=== PATIENT | male | born 1960 | race Caucasian/White ===

== ENCOUNTER 2018-08-14 15:20 | Emergency (ER) | payer BC ==
[2018-08-14] MEDS ORDERED: Sodium Chloride 0.9% 2.5 ML Syringe FLUSH PRN (15:25)
[2018-08-14] MEDS ORDERED: Sodium Chloride 0.9% 10 ML Syringe FLUSH PRN (15:25)
[2018-08-14] MEDS ORDERED: Nitroglycerin 0.4 MG Tab.SL ONE (15:29)
[2018-08-14] MEDS: Nitroglycerin 0.4 MG Tab.SL SL PRN ×2 (15:34→15:39)
--- NOTE | 2018-08-14 15:46 | EDM.PDOC ---
ED HPI GENERAL MEDICAL PROBLEM - General Chief Complaint: Chest Pain Stated Complaint: CHEST PAIN \\ Time Seen by Provider: 08/14/18 15:23 Source of Information: Reports: Patient History Limitations: Reports: No Limitations - History of Present Illness INITIAL COMMENTS - FREE TEXT/NARRATIVE: History of present illness: []Patient started having 5/10 left-sided, nonradiating chest pain since 8:00 this morning with a "weakness" in his left arm. He has been having similar episodes throughout the day lasting approximately 15 minutes each time. He has been mildly short of breath but states he's had a cold all winter long. He denies any fevers, sweats, dizziness or syncope. Patient took ending enteric coated aspirin today. Review of systems: As per history of present illness and below otherwise all systems reviewed and negative. Past medical history: As per history of present illness and as reviewed below otherwise noncontributory. Surgical history: As per history of present illness and as reviewed below otherwise noncontributory. Social history: No reported history of drug or alcohol abuse. Family history: As per history of present illness and as reviewed below otherwise noncontributory. Physical exam: General: Well developed, well nourished in NAD HEENT: Atraumatic, normocephalic, pupils reactive, negative for conjunctival pallor or scleral icterus, mucous membranes moist, throat clear, neck supple, nontender, trachea midline. Lungs: Clear to auscultation, breath sounds equal bilaterally, chest nontender. Heart: S1S2, regular, negative for clicks, rubs, or JVD. Abdomen: NABS, Soft, nondistended, nontender. Negative for masses or hepatosplenomegaly. Negative for costovertebral tenderness. Pelvis: Stable nontender. Genitourinary: Deferred. Rectal: Deferred. Extremities: Atraumatic, negative for cords or calf pain. Neurovascular unremarkable. Neuro: Awake, alert, oriented. Cranial nerves II through XII unremarkable. Cerebellum unremarkable. Motor and sensory unremarkable throughout. Exam nonfocal. Skin:warm and dry Diagnostics: EKG, CBC, chemistry, troponin 2, chest x-ray Therapeutics: Nitroglycerin 2 without relief patient refused any other meds ED Course: stable Impression: Chest pain Prescriptions: None Plan: Follow-up with primary care Definitive disposition and diagnosis as appropriate pending reevaluation and review of above. chest Pain Score (Numeric/FACES): 5 - Related Data Allergies Allergy/AdvReac Type Severity Reaction Status Date / Time No Known Allergies Allergy Verified 08/14/18 15:32 Home Meds: Home Meds . [No Known Home Meds] 08/14/18 [History] Past Medical History - Past Health History Medical/Surgical History: Denies Medical/Surgical History HEENT History: Reports: Impaired Vision - Infectious Disease History Infectious Disease History: Reports: Mononucleosis Social & Family History - Family History Family Medical History: Noncontributory - Tobacco Use Smoking Status *Q: Never Smoker - Recreational Drug Use Recreational Drug Use: No ED ROS GENERAL - Review of Systems Review Of Systems: ROS reveals no pertinent complaints other than HPI. ED EXAM, GENERAL - Physical Exam Exam: See Below Course - Vital Signs Last Recorded V/S: Last Vital Signs Temp 97.9 F 08/14/18 15:32 Pulse 86 08/14/18 18:45 Resp 16 08/14/18 18:45 BP 119/82 08/14/18 18:45 Pulse Ox 95 08/14/18 18:45 - Orders/Labs/Meds Orders: Active Orders 24 hr Category Date Time Status Cardiac Monitoring [RC] . DIRECTED Care 08/14/18 15:25 Active EKG Documentation Completion [RC] STAT Care 08/14/18 15:25 Active TROPONIN I [CHEM] Stat Lab 08/14/18 18:37 Received Nitroglycerin [Nitrostat] Med 08/14/18 15:32 Active 0.4 mg SL Q5M PRN Sodium Chloride 0.9% [Saline Flush] Med 08/14/18 15:25 Active 10 ml FLUSH ASDIRECTED PRN Sodium Chloride 0.9% [Saline Flush] Med 08/14/18 15:25 Active 2.5 ml FLUSH ASDIRECTED PRN Saline Lock Insert [OM.PC] Stat Oth 08/14/18 15:25 Ordered Medication Orders Nitroglycerin (Nitrostat) 0.4 mg SL Q5M PRN PRN Reason: Chest Pain Last Admin: 08/14/18 15:39 Dose: 0.4 mg Admin: 08/14/18 15:34 Dose: 0.4 mg Sodium Chloride (Saline Flush) 10 ml FLUSH ASDIRECTED PRN PRN Reason: Keep Vein Open Last Admin: 08/14/18 15:34 Dose: 10 ml Sodium Chloride (Saline Flush) 2.5 ml FLUSH ASDIRECTED PRN PRN Reason: Keep Vein Open Last Admin: 08/14/18 15:34 Dose: 2.5 ml Labs: Laboratory Tests 08/14/18 08/14/18 Range/Units 15:28 15:28 WBC 7.42 (4.0-11.0) K/uL RBC 5.95 H (4.50-5.90) M/uL Hgb 18.3 H (13.0-17.0) g/dL Hct 52.3 H (38.0-50.0) % MCV 87.9 (80.0-98.0) fL MCH 30.8 (27.0-32.0) pg MCHC 35.0 (31.0-37.0) g/dL RDW Std Deviation 43.8 (28.0-62.0) fl RDW Coeff of Natasha 14 (11.0-15.0) % Plt Count 172 (150-400) K/uL MPV 10.70 (7.40-12.00) fL Neut % (Auto) 59.9 (48.0-80.0) % Lymph % (Auto) 24.9 (16.0-40.0) % [place] % (Auto) 9.0 (0.0-15.0) % Eos % (Auto) 5.5 (0.0-7.0) % Baso % (Auto) 0.7 (0.0-1.5) % Neut # (Auto) 4.4 (1.4-5.7) K/uL Lymph # (Auto) 1.9 (0.6-2.4) K/uL [place] # (Auto) 0.7 (0.0-0.8) K/uL Eos # (Auto) 0.4 (0.0-0.7) K/uL Baso # (Auto) 0.1 (0.0-0.1) K/uL Nucleated RBC % 0.0 /100WBC Nucleated RBCs # 0 K/uL Sodium 139 (136-148) mmol/L Potassium 4.0 (3.5-5.1) mmol/L Chloride 105 (98-107) mmol/L Carbon Dioxide 24.1 (21.0-32.0) mmol/L BUN 18 (7.0-18.0) mg/dL Creatinine 1.0 (0.8-1.3) mg/dL Est Cr Clr Drug Dosing 91.33 mL/min Estimated GFR (MDRD) > 60.0 ml/min Glucose 113 H (74-106) mg/dL Calcium 8.7 (8.5-10.1) mg/dL Total Bilirubin 0.5 (0.2-1.0) mg/dL AST 14 L (15-37) IU/L ALT 22 (14-63) IU/L Alkaline Phosphatase 48 (46-116) U/L Troponin I < 0.050 (0.000-0.056) ng/mL Total Protein 7.1 (6.4-8.2) g/dL Albumin 3.6 (3.4-5.0) g/dL Globulin 3.5 (2.6-4.0) g/dL Albumin/Globulin Ratio 1.0 (0.9-1.6) Meds: Medications Generic Name Dose Route Start Last Admin Trade Name Freq PRN Reason Stop Dose Admin Nitroglycerin 0.4 mg 08/14/18 15:32 08/14/18 15:39 Nitrostat SL 0.4 mg Q5M PRN Administration Chest Pain Sodium Chloride 10 ml 08/14/18 15:25 08/14/18 15:34 Saline Flush FLUSH 10 ml ASDIRECTED PRN Administration Keep Vein Open Sodium Chloride 2.5 ml 08/14/18 15:25 08/14/18 15:34 Saline Flush FLUSH 2.5 ml ASDIRECTED PRN Administration Keep Vein Open Discontinued Medications Generic Name Dose Route Start Last Admin Trade Name Freq PRN Reason Stop Dose Admin Nitroglycerin Confirm 08/14/18 15:29 08/14/18 15:35 Nitrostat Administered 08/14/18 15:30 Not Given Dose 0.4 mg .ROUTE .STK-MED ONE Departure - Departure Time of Disposition: 19:16 Disposition: Against Medical Advice 07 Condition: Good Clinical Impression: Chest pain Qualifiers: Chest pain type: unspecified Qualified Code(s): R07.9 - Chest pain, unspecified Instructions: Nonspecific Chest Pain, [id number] Referrals: PCP,Unknown [Primary Care Provider] - Forms: ED Department Discharge Additional Instructions: The following information is given to patients seen in the emergency department who are being discharged to home. This information is to outline your options for follow-up care. We provide all patients seen in our emergency department with a follow-up referral. The need for follow-up, as well as the timing and circumstances, are variable depending upon the specifics of your emergency department visit. If you don't have a primary care physician on staff, we will provide you with a referral. We always advise you to contact your personal physician following an emergency department visit to inform them of the circumstance of the visit and for follow-up with them and/or the need for any referrals to a consulting specialist. The emergency department will also refer you to a specialist when appropriate. This referral assures that you have the opportunity for follow-up care with a specialist. All of these measure are taken in an effort to provide you with optimal care, which includes your follow-up. Under all circumstances we always encourage you to contact your private physician who remains a resource for coordinating your care. When calling for follow-up care, please make the office aware that this follow-up is from your recent emergency room visit. If for any reason you are refused follow-up, please contact the [facility] Emergency Department at and asked to speak to the emergency department charge nurse. Follow-up with primary care in 2 days as scheduled in terms worsen or change. [facility] [address] [place] [id number] - My Orders Last 24 Hours: My Active Orders 08/14/18 15:25 Cardiac Monitoring [RC] . DIRECTED EKG Documentation Completion [RC] STAT Sodium Chloride 0.9% [Saline Flush] 10 ml FLUSH ASDIRECTED PRN Sodium Chloride 0.9% [Saline Flush] 2.5 ml FLUSH ASDIRECTED PRN Saline Lock Insert [OM.PC] Stat 08/14/18 15:32 Nitroglycerin [Nitrostat] 0.4 mg SL Q5M PRN 08/14/18 18:37 TROPONIN I [CHEM] Stat - Assessment/Plan Last 24 Hours: My Active Orders 08/14/18 15:25 Cardiac Monitoring [RC] . DIRECTED EKG Documentation Completion [RC] STAT Sodium Chloride 0.9% [Saline Flush] 10 ml FLUSH ASDIRECTED PRN Sodium Chloride 0.9% [Saline Flush] 2.5 ml FLUSH ASDIRECTED PRN Saline Lock Insert [OM.PC] Stat 08/14/18 15:32 Nitroglycerin [Nitrostat] 0.4 mg SL Q5M PRN 08/14/18 18:37 TROPONIN I [CHEM] Stat
[2018-08-14 16:13] LABS: CHLORIDE,CL 105 mmol/L (98-107); SODIUM,NA 139 mmol/L (136-148)
--- NOTE | 2018-08-14 16:14 | CR ---
EXAMINATION: Portable chest radiograph. HISTORY: Shortness of breath. FINDINGS: The trachea is midline. The cardiomediastinal silhouette is within normal limits. No pulmonary infiltrates, effusions or pneumothorax. Mild biapical scarring. Osseous structures appear unremarkable. IMPRESSION: No acute cardiopulmonary process.
== END 2018-08-14 19:45 | disposition left against medical advice (07) ==
LOC: MW.ED 15:20
DX: R07.9 Chest pain, unspecified (principal)
CPT/HCPCS: 36415; 71045; 80053; 84484; 85025; 93005; 99285; A9270; 99284

== ENCOUNTER 2018-08-14 21:54 | Observation (INO) | payer BC ==
[2018-08-14] MEDS ORDERED: Sodium Chloride 0.9% 2.5 ML Syringe FLUSH PRN (22:04)
[2018-08-14] MEDS ORDERED: Sodium Chloride 0.9% 10 ML Syringe FLUSH PRN (22:04)
[2018-08-14] MEDS ORDERED: Ondansetron 4 MG/2 ML SDV IVPUSH ONE (22:04)
[2018-08-14] MEDS ORDERED: Ketorolac 30 MG/ML SDV IVPUSH ONE (22:04)
[2018-08-14] MEDS ORDERED: Sodium Chloride 0.9% 1,000 ML IV ONE (22:04)
--- NOTE | 2018-08-14 22:08 | EDM.PDOC ---
ED HPI GENERAL MEDICAL PROBLEM - General Stated Complaint: CHEST PAIN Time Seen by Provider: 08/14/18 22:00 - History of Present Illness INITIAL COMMENTS - FREE TEXT/NARRATIVE: HISTORY AND PHYSICAL: History of present illness: The patient is a 58-year-old male who was seen here earlier this evening with left-sided chest pain that was episodic through the day starting at 8 AM. The patient did not respond to nitroglycerin here and it or he taken an enteric- coated aspirin earlier today when Dr. Cline saw this patient and he had a negative workup including 2 negative troponins and a negative chest x-ray. The patient refused any other medications after the 2 nitroglycerin and said he got a headache from them. He refused admission although admission was advised due to his age and presentation. He says to me he has no pre-existing medical problems and when he left here he felt fine but when he got home he started having the left-sided chest pain again which he rated as a 5/10 he then became nauseated and vomited a large amount of fluid and his headache got worse. The patient said that when the pain started he tried to take some Advil but he vomited that medication up. Currently he has no chest pain and is only slightly nauseated and has no abdominal pain. Before the episode of vomiting he did not have any abdominal complaints. He is not dizzy or lightheaded and he has no neck or back pain. I asked the patient if he was willing to stay for admission now and he is agreeable. The patient denies any GI history or food intolerance Review of systems: As per history of present illness and below otherwise all systems reviewed and negative. Past medical history: As per history of present illness and as reviewed below otherwise noncontributory. Surgical history: As per history of present illness and as reviewed below otherwise noncontributory. Social history: No reported history of drug or alcohol abuse. Family history: As per history of present illness and as reviewed below otherwise noncontributory. Physical exam: General: Well-developed well-nourished thin man who is nontoxic and vital signs are noted by me. HEENT: Atraumatic, normocephalic, pupils reactive, negative for conjunctival pallor or scleral icterus, mucous membranes moist, throat clear, neck supple, nontender, trachea midline. Lungs: Clear to auscultation, breath sounds equal bilaterally, chest nontender. Heart: S1S2, regular rate and rhythm no overt murmurs Abdomen: Soft, nondistended, nontender. Negative for masses or hepatosplenomegaly. NABS Pelvis: Stable nontender. Genitourinary: Deferred. Rectal: Deferred. Extremities: Atraumatic, negative for cords or calf pain. Neurovascular unremarkable. No pedal edema Neuro: Awake, alert, oriented. Cranial nerves II through XII unremarkable. Cerebellum unremarkable. Motor and sensory unremarkable throughout. Exam nonfocal. Diagnostics: EKG CBC CMP troponin H pylori amylase and lipase Chest x-ray was performed earlier and will not be repeated and all labs from earlier have been reviewed by me Therapeutics: IV O2 monitor IV fluids Zofran Toradol Patient had an aspirin earlier today He currently denies any chest pain so I will not give him any nitroglycerin 2323: I discussed with the patient and family at bedside all testing results and the patient is agreeable for observation admission. I did discuss this case with Dr. Lo who accepts him. Impression: Episodic chest pain Definitive disposition and diagnosis as appropriate pending reevaluation and review of above. Chest Pain Score (Numeric/FACES): 5 - Related Data Allergies Allergy/AdvReac Type Severity Reaction Status Date / Time No Known Allergies Allergy Verified 08/14/18 22:08 Home Meds: Home Meds . [No Known Home Meds] 08/14/18 [History] Past Medical History - Past Health History Medical/Surgical History: Denies Medical/Surgical History HEENT History: Reports: Impaired Vision - Infectious Disease History Infectious Disease History: Reports: Mononucleosis Social & Family History - Family History Family Medical History: Noncontributory ED ROS GENERAL - Review of Systems Review Of Systems: ROS reveals no pertinent complaints other than HPI. ED EXAM, GENERAL - Physical Exam Exam: See Below (See dictation) Course - Vital Signs Last Recorded V/S: Last Vital Signs Temp 36.6 C 08/14/18 22:06 Pulse 70 08/14/18 22:06 Resp BP 139/92 H 08/14/18 22:06 Pulse Ox 96 08/14/18 22:06 - Orders/Labs/Meds Orders: Active Orders 24 hr Category Date Time Status Patient Status [ADT] Stat ADT 08/14/18 23:24 Ordered Cardiac Monitoring [RC] . DIRECTED Care 08/14/18 22:03 Active EKG Documentation Completion [RC] STAT Care 08/14/18 22:03 Active Oxygen Therapy, ED [RC] ASDIRECTED Care 08/14/18 22:03 Active Pulse Oximetry [RC] ASDIRECTED Care 08/14/18 22:03 Active Sodium Chloride 0.9% [Saline Flush] Med 08/14/18 22:04 Active 10 ml FLUSH ASDIRECTED PRN Sodium Chloride 0.9% [Saline Flush] Med 08/14/18 22:04 Active 2.5 ml FLUSH ASDIRECTED PRN Saline Lock Insert [OM.PC] Stat Oth 08/14/18 22:03 Ordered Medication Orders Sodium Chloride (Saline Flush) 10 ml FLUSH ASDIRECTED PRN PRN Reason: Keep Vein Open Sodium Chloride (Saline Flush) 2.5 ml FLUSH ASDIRECTED PRN PRN Reason: Keep Vein Open Labs: Laboratory Tests 08/14/18 08/14/18 08/14/18 Range/Units 22:08 22:08 22:08 WBC 9.42 (4.0-11.0) K/uL RBC 5.72 (4.50-5.90) M/uL Hgb 17.9 H (13.0-17.0) g/dL Hct 50.6 H (38.0-50.0) % MCV 88.5 (80.0-98.0) fL MCH 31.3 (27.0-32.0) pg MCHC 35.4 (31.0-37.0) g/dL RDW Std Deviation 44.1 (28.0-62.0) fl RDW Coeff of Natasha 14 (11.0-15.0) % Plt Count 165 (150-400) K/uL MPV 10.70 (7.40-12.00) fL Neut % (Auto) 68.4 (48.0-80.0) % Lymph % (Auto) 21.7 (16.0-40.0) % [place] % (Auto) 6.2 (0.0-15.0) % Eos % (Auto) 3.5 (0.0-7.0) % Baso % (Auto) 0.2 (0.0-1.5) % Neut # (Auto) 6.5 H (1.4-5.7) K/uL Lymph # (Auto) 2.0 (0.6-2.4) K/uL [place] # (Auto) 0.6 (0.0-0.8) K/uL Eos # (Auto) 0.3 (0.0-0.7) K/uL Baso # (Auto) 0.0 (0.0-0.1) K/uL Nucleated RBC % 0.0 /100WBC Nucleated RBCs # 0 K/uL Sodium 141 (136-148) mmol/L Potassium 4.4 (3.5-5.1) mmol/L Chloride 105 (98-107) mmol/L Carbon Dioxide 27.9 (21.0-32.0) mmol/L BUN 20 H (7.0-18.0) mg/dL Creatinine 1.1 (0.8-1.3) mg/dL Est Cr Clr Drug Dosing 83.03 mL/min Estimated GFR (MDRD) > 60.0 ml/min Glucose 110 H (74-106) mg/dL Calcium 8.9 (8.5-10.1) mg/dL Total Bilirubin 0.5 (0.2-1.0) mg/dL AST 15 (15-37) IU/L ALT 23 (14-63) IU/L Alkaline Phosphatase 43 L (46-116) U/L Troponin I < 0.050 (0.000-0.056) ng/mL Total Protein 6.8 (6.4-8.2) g/dL Albumin 3.5 (3.4-5.0) g/dL Globulin 3.3 (2.6-4.0) g/dL Albumin/Globulin Ratio 1.1 (0.9-1.6) Amylase 74 (25-115) U/L Lipase 222 (73-393) U/L H. pylori IgG Antibody NEGATIVE (NEG) Meds: Medications Generic Name Dose Route Start Last Admin Trade Name Freq PRN Reason Stop Dose Admin Sodium Chloride 10 ml 08/14/18 22:04 Saline Flush FLUSH ASDIRECTED PRN Keep Vein Open Sodium Chloride 2.5 ml 08/14/18 22:04 Saline Flush FLUSH ASDIRECTED PRN Keep Vein Open Discontinued Medications Generic Name Dose Route Start Last Admin Trade Name Freq PRN Reason Stop Dose Admin Sodium Chloride 1,000 mls @ 999 mls/hr 08/14/18 22:04 08/14/18 22:15 Normal Saline IV 08/14/18 23:04 999 mls/hr STAT ONE Administration Ketorolac Tromethamine 30 mg 08/14/18 22:04 08/14/18 22:16 Toradol IVPUSH 08/14/18 22:05 30 mg ONETIME ONE Administration Ondansetron HCl 4 mg 08/14/18 22:04 08/14/18 22:15 Zofran IVPUSH 08/14/18 22:05 4 mg ONETIME ONE Administration Departure - Departure Time of Disposition: 23:25 Disposition: Refer to Observation Condition: Good Clinical Impression: Chest pain Qualifiers: Chest pain type: unspecified Qualified Code(s): R07.9 - Chest pain, unspecified - Discharge Information Referrals: PCP,None [Primary Care Provider] - - My Orders Last 24 Hours: My Active Orders 08/14/18 22:03 Cardiac Monitoring [RC] . DIRECTED EKG Documentation Completion [RC] STAT Oxygen Therapy, ED [RC] ASDIRECTED Pulse Oximetry [RC] ASDIRECTED Saline Lock Insert [OM.PC] Stat 08/14/18 22:04 Sodium Chloride 0.9% [Saline Flush] 10 ml FLUSH ASDIRECTED PRN Sodium Chloride 0.9% [Saline Flush] 2.5 ml FLUSH ASDIRECTED PRN 08/14/18 23:24 Patient Status [ADT] Stat - Assessment/Plan Last 24 Hours: My Active Orders 08/14/18 22:03 Cardiac Monitoring [RC] . DIRECTED EKG Documentation Completion [RC] STAT Oxygen Therapy, ED [RC] ASDIRECTED Pulse Oximetry [RC] ASDIRECTED Saline Lock Insert [OM.PC] Stat 08/14/18 22:04 Sodium Chloride 0.9% [Saline Flush] 10 ml FLUSH ASDIRECTED PRN Sodium Chloride 0.9% [Saline Flush] 2.5 ml FLUSH ASDIRECTED PRN 08/14/18 23:24 Patient Status [ADT] Stat
[2018-08-14 22:48] LABS: CHLORIDE,CL 105 mmol/L (98-107); SODIUM,NA 141 mmol/L (136-148)
[2018-08-15] MEDS ORDERED: oxyCODONE 5 MG Tab PO PRN (00:30)
[2018-08-15] MEDS ORDERED: Acetaminophen 325 MG Tab PO PRN (00:30)
[2018-08-15] MEDS ORDERED: Sodium Chloride 0.9% 10 ML Syringe FLUSH PRN (00:31)
[2018-08-15] MEDS ORDERED: Ondansetron 4 MG/2 ML SDV IVPUSH PRN (00:33)
--- NOTE | 2018-08-15 06:49 | PCM.HP ---
H&P History of Present Illness - General Date of Service: 08/15/18 Admit Problem/Dx: Admission Diagnosis/Problem Admission Diagnosis/Problem Atypical chest pain Source of Information: Patient History Limitations: Reports: No Limitations - History of Present Illness Initial Comments - Free Text/Narative: The patient is an otherwise healthy 58-year-old gentleman who had presented to the emergency department yesterday morning with a complaint of nonspecific chest pain. The patient had been advised for hospitalization admission however he declined at that time. The patient had been doing well after discharge from the emergency department when he presented a second time with complaint of left- sided chest pain primarily in his shoulder and underneath his left arm which it started suddenly and had no specific aggravating or relieving factors. The symptoms did not radiate. He had been given previously nitroglycerin in the emergency department and he had developed a headache from this. The patient had a headache at the time of the chest pain and had some vomiting associated with the pain. The patient is healthy and he does not take any medications on a regular basis. The patient has denied any alcohol or tobacco use. The patient also had during hospitalization and emergency room visit 3 essentially undetectable troponins. During the short course of the patient's hospitalization he had been pain free. Onset of Symptoms: Reports: Sudden Duration of Symptoms: Reports: Hour(s):, Getting Worse Location: Reports: Chest Quality: Reports: Dull, Other (Cramping) Severity: Moderate Improves with: Reports: None Worsens with: Reports: Movement Associated Symptoms: Reports: No Other Symptoms Chest Pain Score (Numeric/FACES): 0 Headache Pain Score (Numeric/FACES): 3 - Related Data Allergies/Adverse Reactions: Allergies Allergy/AdvReac Type Severity Reaction Status Date / Time No Known Allergies Allergy Verified 08/14/18 22:08 Home Medications: Home Meds . [No Known Home Meds] 08/14/18 [History] Past Medical History - Past Health History Medical/Surgical History: Denies Medical/Surgical History HEENT History: Reports: Impaired Vision Cardiovascular History: Reports: None Respiratory History: Reports: None Gastrointestinal History: Reports: GERD Genitourinary History: Reports: None Musculoskeletal History: Reports: None Neurological History: Reports: None Psychiatric History: Reports: None Endocrine/Metabolic History: Reports: None Hematologic History: Reports: None Immunologic History: Reports: None Oncologic (Cancer) History: Reports: None Dermatologic History: Reports: None - Infectious Disease History Infectious Disease History: Reports: Mononucleosis - Past Surgical History Musculoskeletal Surgical History: Reports: Shoulder Surgery Social & Family History - Family History Family Medical History: Noncontributory Cardiac: Reports: CAD - Tobacco Use Smoking Status *Q: Never Smoker Second Hand Smoke Exposure: No - Caffeine Use Caffeine Use: Reports: Coffee, Energy Drinks, Soda, Tea - Alcohol Use Days Per Week of Alcohol Use: 1 Number of Drinks Per Day: 3 Total Drinks Per Week: 3 Date of Last Drink: 08/08/18 - Recreational Drug Use Recreational Drug Use: No H&P Review of Systems - Review of Systems: Review Of Systems: See Below General: Reports: No Symptoms HEENT: Reports: No Symptoms Pulmonary: Reports: No Symptoms Cardiovascular: Reports: Chest Pain Gastrointestinal: Reports: No Symptoms Genitourinary: Reports: No Symptoms Musculoskeletal: Reports: No Symptoms Skin: Reports: No Symptoms Psychiatric: Reports: No Symptoms Neurological: Reports: No Symptoms Hematologic/Lymphatic: Reports: No Symptoms Immunologic: Reports: No Symptoms Exam - Exam Exam: See Below - Vital Signs Vital Signs: Last Vital Signs Temp 36.5 C 08/15/18 04:00 Pulse 68 08/15/18 04:00 Resp 16 08/15/18 04:00 BP 107/66 08/15/18 04:00 Pulse Ox 95 08/15/18 04:00 Weight: 85.366 kg - Exam Quality Assessment: No: Supplemental Oxygen General: Alert, Oriented, Cooperative HEENT: Conjunctiva Clear, EACs Clear, EOMI, Hearing Intact, Mucosa Moist & [place] , Nares Patent, PERRLA Neck: Supple, Trachea Midline, 2 Lungs: Clear to Auscultation, Normal Respiratory Effort Cardiovascular: Regular Rate, Regular Rhythm GI/Abdominal Exam: Normal Bowel Sounds, Soft, Non-Tender, No Distention (Male) Exam: Deferred Rectal (Males) Exam: Deferred Back Exam: Normal Inspection, Full Range of Motion, NT Extremities: Normal Inspection, Normal Range of Motion, No Pedal Edema Skin: Warm, Dry, Intact Neurological: Cranial Nerves Intact, Normal Gait Neuro Extensive - Mental Status: Alert, Oriented x3 Neuro Extensive - Motor, Sensory, Reflexes: CN II-XII Intact Psychiatric: Alert, Normal Affect, Normal Mood - Patient Data Lab Results Last 24 hrs: Laboratory Results - last 24 hr 08/14/18 08/14/18 08/14/18 Range/Units 22:08 22:08 22:08 WBC 9.42 (4.0-11.0) K/uL RBC 5.72 (4.50-5.90) M/uL Hgb 17.9 H (13.0-17.0) g/dL Hct 50.6 H (38.0-50.0) % MCV 88.5 (80.0-98.0) fL MCH 31.3 (27.0-32.0) pg MCHC 35.4 (31.0-37.0) g/dL RDW Std Deviation 44.1 (28.0-62.0) fl RDW Coeff of Natasha 14 (11.0-15.0) % Plt Count 165 (150-400) K/uL MPV 10.70 (7.40-12.00) fL Neut % (Auto) 68.4 (48.0-80.0) % Lymph % (Auto) 21.7 (16.0-40.0) % [place]oke % (Auto) 6.2 (0.0-15.0) % Eos % (Auto) 3.5 (0.0-7.0) % Baso % (Auto) 0.2 (0.0-1.5) % Neut # (Auto) 6.5 H (1.4-5.7) K/uL Lymph # (Auto) 2.0 (0.6-2.4) K/uL [place]oke # (Auto) 0.6 (0.0-0.8) K/uL Eos # (Auto) 0.3 (0.0-0.7) K/uL Baso # (Auto) 0.0 (0.0-0.1) K/uL Nucleated RBC % 0.0 /100WBC Nucleated RBCs # 0 K/uL Sodium 141 (136-148) mmol/L Potassium 4.4 (3.5-5.1) mmol/L Chloride 105 (98-107) mmol/L Carbon Dioxide 27.9 (21.0-32.0) mmol/L BUN 20 H (7.0-18.0) mg/dL Creatinine 1.1 (0.8-1.3) mg/dL Est Cr Clr Drug Dosing 83.03 mL/min Estimated GFR (MDRD) > 60.0 ml/min Glucose 110 H (74-106) mg/dL Calcium 8.9 (8.5-10.1) mg/dL Total Bilirubin 0.5 (0.2-1.0) mg/dL AST 15 (15-37) IU/L ALT 23 (14-63) IU/L Alkaline Phosphatase 43 L (46-116) U/L Troponin I < 0.050 (0.000-0.056) ng/mL Total Protein 6.8 (6.4-8.2) g/dL Albumin 3.5 (3.4-5.0) g/dL Globulin 3.3 (2.6-4.0) g/dL Albumin/Globulin Ratio 1.1 (0.9-1.6) Amylase 74 (25-115) U/L Lipase 222 (73-393) U/L H. pylori IgG Antibody NEGATIVE (NEG) Result Diagrams: 08/14/18 22:08 08/14/18 22:08 - Problem List (1) Left-sided chest wall pain SNOMED Code(s): 695688185 ICD Code: R07.89 - OTHER CHEST PAIN Status: Resolved Priority: High Problem List Initiated/Reviewed/Updated: Yes Orders Last 24hrs: Active Orders 24 hr Category Date Time Status Patient Status [ADT] Stat ADT 08/14/18 23:24 Active EKG 12 Lead [EKG Documentation Completion] [RC] AM Care 08/15/18 06:00 Active EKG Documentation Completion [RC] STAT Care 08/14/18 22:03 Active Oxygen Therapy, ED [RC] ASDIRECTED Care 08/14/18 22:03 Active Pulse Oximetry [RC] ASDIRECTED Care 08/14/18 22:03 Active Telemetry Monitoring [Cardiac Monitoring] [RC] Q8H Care 08/14/18 23:40 Active Heart Healthy Diet [DIET] Diet 08/15/18 Breakfast Active TROPONIN I [CHEM] Routine Lab 08/15/18 06:25 Received Acetaminophen [Tylenol] Med 08/15/18 00:30 Active 650 mg PO Q6H PRN Ondansetron [Zofran] Med 08/15/18 00:33 Active 4 mg IVPUSH Q4H PRN Sodium Chloride 0.9% [Saline Flush] Med 08/14/18 22:04 Active 10 ml FLUSH ASDIRECTED PRN Sodium Chloride 0.9% [Saline Flush] Med 08/15/18 00:31 Active 10 ml FLUSH ASDIRECTED PRN Sodium Chloride 0.9% [Saline Flush] Med 08/14/18 22:04 Active 2.5 ml FLUSH ASDIRECTED PRN oxyCODONE Med 08/15/18 00:30 Active 5 mg PO Q4H PRN Saline Lock Insert [OM.PC] Routine Oth 08/15/18 00:31 Ordered Saline Lock Insert [OM.PC] Stat Ot 08/14/18 22:03 Ordered Medication Orders Acetaminophen (Tylenol) 650 mg PO Q6H PRN PRN Reason: Mild Pain Ondansetron HCl (Zofran) 4 mg IVPUSH Q4H PRN PRN Reason: Nausea/Vomiting Oxycodone HCl (Oxycodone) 5 mg PO Q4H PRN PRN Reason: Moderate Pain Sodium Chloride (Saline Flush) 10 ml FLUSH ASDIRECTED PRN PRN Reason: Keep Vein Open Sodium Chloride (Saline Flush) 2.5 ml FLUSH ASDIRECTED PRN PRN Reason: Keep Vein Open Sodium Chloride (Saline Flush) 10 ml FLUSH ASDIRECTED PRN PRN Reason: Keep Vein Open Assessment/Plan Comment:: The patient is an otherwise healthy 58-year-old gentleman who was admitted secondary to atypical chest pain. The patient had normal EKGs as well as normal telemetry during the course of hospitalization. The patient also had undetectable troponins 3. The patient does not take any medications that he has no history of medical problems. He does however, have at least 3 risk factors and he is recommended to follow-up with cardiology for either exercise or nuclear medicine stress test to help exclude occult coronary artery disease. The pain is likely secondary to chest wall pain and muscular in origin. The patient has been tolerating his health artery diet and he's been recommended to continue with this. He is also to have activity as tolerated. The patient has been discharged from acute hospitalization with the recommendations listed above. The patient's admission history and physical will also function as his discharge summary.
== END 2018-08-15 10:55 | disposition home or self-care (01) ==
LOC: MW.ED 21:54 → MW.MS 23:24
PROVIDERS: ADMIT Internal Medicine; ATTEND Internal Medicine
DX: R07.89 Other chest pain (principal); K21.9 Gastro-esophageal reflux disease without esophagitis
CPT/HCPCS: 36415; 80053; 82150; 83690; 84484; 85025; 86677; 93005; 96361; 96374; 96375; 99285; G0378; J1885; J2405; J7040; 71045; 71045-26; 99284; A9270-GY